=== PATIENT | female | born 1960 | race Hispanic/Latino ===

== ENCOUNTER 2019-03-07 22:50 | Emergency (ER) | payer SELFPAY ==
[2019-03-08] MEDS ORDERED: Acetaminophen 325 MG TAB ONE (00:42)
--- NOTE | 2019-03-08 07:37 | RAD ---
XR Ankle Lt 3 View STANDARD History: Pain. Injury Comparison: None. Findings: Spencer B distal fibular fracture to the level of the syndesmosis with lateral talar shift an d one cortex width lateral displacement. There is also small avulsion fracture of the medial malleolus. Subtle small fracture of the posterior malleolus is also present. Impression: Trimalleolar fracture with lateral talar shift.
== END 2019-03-08 00:52 | disposition home or self-care (01) ==
LOC: ERS 22:50
DX: M25.572 Pain in left ankle and joints of left foot (principal); I10 Essential (primary) hypertension; F32.9 Major depressive disorder, single episode, unspecified; F17.210 Nicotine dependence, cigarettes, uncomplicated; Z79.899 Other long term (current) drug therapy; W19.XXXA Unspecified fall, initial encounter